=== PATIENT | male | born 1950 | race African-American/Black ===

== ENCOUNTER 2016-08-22 03:13 | Emergency (ER) | payer MEDICARE, MEDICAID ==
[~2016-08-22] VITALS: Ht 188 cm; Wt 109.0 kg
[~2016-08-22 03:13] MED LIST: ALBUTEROL; ASPI-1035; FLOVENT HFA; HY1; LORA10CA; LORATADINE; METF500T4; METO100T9; OMEPRZOLE; POTA20TA82; PROAIR HFA; SIMV20TA2; SIMVASTATIN; TERA5CAP4
[2016-08-22] MEDS ORDERED: MORPHINE SULFATE 4 MG/ML CPJ (NOT FOR IM USE) IV STA (04:30)
[2016-08-22] MEDS ORDERED: ONDANSETRON HCL 4MG/2ML VIAL IV STA (04:30)
[2016-08-22 04:53] LABS: BASOPHILS % 0.7 % (0.0-2.0); EOSINOPHILS % 2.1 % (0.0-5.0); HEMATOCRIT. 38.7 % (42.0-52.0); LYMPHOCYTES % 28.3 % (20.0-50.0); MEAN CORPUSCULAR HGB CONC 33.6 g/dL (31.0-37.0); MEAN CORPUSCULAR VOLUME 86.3 fL (80.0-94.0); MEAN PLATELET VOLUME 10.4 fl (7.4-10.4); MONOCYTES % 9.3 % (2.0-8.0); NEUTROPHILS % 59.6 % (40.0-76.0); PLATELET 125 x1000/uL (130-400); RED BLOOD CELL COUNT 4.49 mill/uL (4.7-6.1); RED CELL DISTRIBUTION WIDTH 13.8 % (11.6-14.6); WHITE BLOOD COUNT 4.3 x1000/uL (4.5-11.0)
[2016-08-22 05:00] LABS: CHLORIDE 107 mEq/L (98-107); INDEX ICTERIC 1 (1-4); INDEX LIPEMIC 1 (1-3)
[2016-08-22 05:05] LABS: ANION GAP 12; CARBON DIOXIDE 26 mEq/L (21-32); UREA NITROGEN BLOOD 15 mg/dL (7-21)
[2016-08-22 05:06] LABS: eGFR > 60 mL/min (>60)
[2016-08-22 05:20] LABS: INDEX HEMOLYSI 4 (1-3)
[2016-08-22 07:23] VITALS: BP 158/86
== END 2016-08-22 07:24 | disposition home or self-care (01) ==
LOC: ER 03:28
DX: M54.12 Radiculopathy, cervical region (principal); J45.909 Unspecified asthma, uncomplicated; E11.9 Type 2 diabetes mellitus without complications; I10 Essential (primary) hypertension; Z79.82 Long term (current) use of aspirin; Z79.899 Other long term (current) drug therapy
CPT/HCPCS: 36415; 71010; 72040; 80048; 85025; 93005; 96374; 96375; 99285; J2270; J2405